=== PATIENT | female | born 1990 | race Two or more races ===

== ENCOUNTER 2017-10-02 20:43 | Emergency (ER) | payer OTHER ==
[2017-10-02] MEDS ORDERED: Sodium Chloride 0.9% 1,000 ML IV ONE (20:45)
[2017-10-02] MEDS ORDERED: LORazepam 2 MG/ML SDV IVPUSH ONE (20:45)
--- NOTE | 2017-10-02 20:49 | EDM.PDOC ---
ED HPI GENERAL MEDICAL PROBLEM - General Chief Complaint: Cardiovascular Problem Stated Complaint: CARDIAC Time Seen by Provider: 10/02/17 20:49 Source of Information: Reports: Patient - History of Present Illness INITIAL COMMENTS - FREE TEXT/NARRATIVE: HISTORY AND PHYSICAL: History of present illness: [Patient presents via EMS She is taking a fat burning stimulant product tonight to supplement called "reinier willams", blood pressure is elevated initially as well as heart rate however she is provided Ativan 1 mg IV blood pressure is normal as well as heart rate in no distress less jittery I did call poison control had no further recommendation just recommending no further stimulants or caffeine tonight as they were familiar with product that do not have any specific recommendation No fever nausea vomiting chills sweats no chest pain shortness breath headache dizziness palpitation no bowel or urine symptoms--post Ativan, 1.5 hours from ingestion Review of systems: As per history of present illness and below otherwise all systems reviewed and negative. Past medical history: As per history of present illness and as reviewed below otherwise noncontributory. Surgical history: As per history of present illness and as reviewed below otherwise noncontributory. Social history: No reported history of drug or alcohol abuse. Family history: As per history of present illness and as reviewed below otherwise noncontributory. Physical exam: HEENT: Atraumatic, normocephalic, pupils reactive, negative for conjunctival pallor or scleral icterus, mucous membranes moist, throat clear, neck supple, nontender, trachea midline. Lungs: Clear to auscultation, breath sounds equal bilaterally, chest nontender. Heart: S1S2, regular, negative for clicks, rubs, or JVD. Abdomen: Soft, nondistended, nontender. Negative for masses or hepatosplenomegaly. Negative for costovertebral tenderness. Pelvis: Stable nontender. Genitourinary: Deferred. Rectal: Deferred. Extremities: Atraumatic, negative for cords or calf pain. Neurovascular unremarkable. Neuro: Awake, alert, oriented. Cranial nerves II through XII unremarkable. Cerebellum unremarkable. Motor and sensory unremarkable throughout. Exam nonfocal. Diagnostics: [CBC CMP UA hCG troponin EKG Chest 1 view] Therapeutics: [Liter normal saline bolus Ativan 1 mg IV ] Impression: [ ingestion of stimulant Medical screening exam] Definitive disposition and diagnosis as appropriate pending reevaluation and review of above. Left Chest Pain Score (Numeric/FACES): 7 - Related Data Allergies Allergy/AdvReac Type Severity Reaction Status Date / Time No Known Allergies Allergy Verified 10/02/17 20:57 Home Meds: Home Meds . [No Known Home Meds] 10/02/17 [History] Past Medical History - Past Health History Medical/Surgical History: Denies Medical/Surgical History Social & Family History - Tobacco Use Smoking Status *Q: Never Smoker ED ROS GENERAL - Review of Systems Review Of Systems: See Below ED EXAM, GENERAL - Physical Exam Exam: See Below Course - Vital Signs Last Recorded V/S: Last Vital Signs Temp 98.5 F 10/02/17 20:51 Pulse 64 10/02/17 21:30 Resp 12 10/02/17 21:30 BP 102/67 10/02/17 21:30 Pulse Ox 99 10/02/17 21:30 - Orders/Labs/Meds Orders: Active Orders 24 hr Category Date Time Status EKG Documentation Completion [RC] STAT Care 10/02/17 20:45 Active Chest 1V Frontal [CR] Stat Exams 10/02/17 20:45 Taken UA W/MICROSCOPIC [URIN] Stat Lab 10/02/17 20:55 Ordered Sodium Chloride 0.9% [Normal Saline] 1,000 ml Med 10/02/17 20:45 Active IV STAT Medication Orders Sodium Chloride (Normal Saline) 1,000 mls @ 999 mls/hr IV STAT ONE Stop: 10/02/17 21:45 Last Admin: 10/02/17 21:00 Dose: 999 mls/hr Labs: Laboratory Tests 10/02/17 10/02/17 10/02/17 Range/Units 20:55 20:58 20:58 WBC 8.82 (4.0-11.0) K/uL RBC 4.81 (4.30-5.90) M/uL Hgb 14.5 (12.0-16.0) g/dL Hct 43.0 (36.0-46.0) % MCV 89.4 (80.0-98.0) fL MCH 30.1 (27.0-32.0) pg MCHC 33.7 (31.0-37.0) g/dL RDW Std Deviation 44.1 (28.0-62.0) fl RDW Coeff of Wendy 14 (11.0-15.0) % Plt Count 260 (150-400) K/uL MPV 9.40 (7.40-12.00) fL Neut % (Auto) 59.3 (48.0-80.0) % Lymph % (Auto) 31.7 (16.0-40.0) % Tripp % (Auto) 7.0 (0.0-15.0) % Eos % (Auto) 1.8 (0.0-7.0) % Baso % (Auto) 0.2 (0.0-1.5) % Neut # (Auto) 5.2 (1.4-5.7) K/uL Lymph # (Auto) 2.8 H (0.6-2.4) K/uL Tripp # (Auto) 0.6 (0.0-0.8) K/uL Eos # (Auto) 0.2 (0.0-0.7) K/uL Baso # (Auto) 0.0 (0.0-0.1) K/uL Nucleated RBC % 0.0 /100WBC Nucleated RBCs # 0 K/uL Sodium 140 (136-145) mmol/L Potassium 3.4 L (3.5-5.1) mmol/L Chloride 105 (98-107) mmol/L Carbon Dioxide 24.4 (21.0-32.0) mmol/L BUN 19 H (7.0-18.0) mg/dL Creatinine 1.0 (0.6-1.0) mg/dL Est Cr Clr Drug Dosing 67.43 mL/min Estimated GFR (MDRD) > 60.0 ml/min Glucose 93 (74-106) mg/dL Calcium 9.0 (8.5-10.1) mg/dL Total Bilirubin 0.3 (0.2-1.0) mg/dL AST 25 (15-37) IU/L ALT 30 (14-63) IU/L Alkaline Phosphatase 69 (46-116) U/L Troponin I < 0.050 (0.000-0.056) ng/mL Total Protein 7.9 (6.4-8.2) g/dL Albumin 4.0 (3.4-5.0) g/dL Globulin 3.9 H (2.0-3.5) g/dL Albumin/Globulin Ratio 1.0 L (1.3-2.8) Lipase 198 (73-393) U/L Urine Color YELLOW Urine Appearance CLEAR Urine pH 6.0 (5.0-8.0) Ur Specific [place] <= 1.005 (1.001-1.035) Urine Protein NEGATIVE (NEGATIVE) mg/dL Urine Glucose (UA) NEGATIVE (NEGATIVE) mg/dL Urine Ketones NEGATIVE (NEGATIVE) mg/dL Urine Occult Blood NEGATIVE (NEGATIVE) Urine Nitrite NEGATIVE (NEGATIVE) Urine Bilirubin NEGATIVE (NEGATIVE) Urine Urobilinogen 0.2 (<2.0) EU/dL Ur Leukocyte Esterase NEGATIVE (NEGATIVE) Urine RBC 0-1 (0-2/HPF) Urine WBC 0-1 (0-5/HPF) Ur Epithelial Cells RARE (NONE-FEW) Urine Bacteria RARE (NEGATIVE) Meds: Medications Generic Name Dose Route Start Last Admin Trade Name Freq PRN Reason Stop Dose Admin Sodium Chloride 1,000 mls @ 999 mls/hr 10/02/17 20:45 10/02/17 21:00 Normal Saline IV 10/02/17 21:45 999 mls/hr STAT ONE Administration Discontinued Medications Generic Name Dose Route Start Last Admin Trade Name Freq PRN Reason Stop Dose Admin Lorazepam 1 mg 10/02/17 20:45 10/02/17 21:00 Ativan IVPUSH 10/02/17 20:46 1 mg ONETIME ONE Administration Departure - Departure Time of Disposition: 21:35 Disposition: Home, Self-Care 01 Condition: Good Clinical Impression: Medication adverse effect, Encounter for medical screening examination Forms: ED Department Discharge Additional Instructions: The following information is given to patients seen in the emergency department who are being discharged to home. This information is to outline your options for follow-up care. We provide all patients seen in our emergency department with a follow-up referral. The need for follow-up, as well as the timing and circumstances, are variable depending upon the specifics of your emergency department visit. If you don't have a primary care physician on staff, we will provide you with a referral. We always advise you to contact your personal physician following an emergency department visit to inform them of the circumstance of the visit and for follow-up with them and/or the need for any referrals to a consulting specialist. The emergency department will also refer you to a specialist when appropriate. This referral assures that you have the opportunity for follow-up care with a specialist. All of these measure are taken in an effort to provide you with optimal care, which includes your follow-up. Under all circumstances we always encourage you to contact your private physician who remains a resource for coordinating your care. When calling for follow-up care, please make the office aware that this follow-up is from your recent emergency room visit. If for any reason you are refused follow-up, please contact the [facility] emergency department at and asked to speak to the emergency department charge nurse. - My Orders Last 24 Hours: My Active Orders 10/02/17 20:45 EKG Documentation Completion [RC] STAT Chest 1V Frontal [CR] Stat Sodium Chloride 0.9% [Normal Saline] 1,000 ml IV STAT 10/02/17 20:55 UA W/MICROSCOPIC [URIN] Stat - Assessment/Plan Last 24 Hours: My Active Orders 10/02/17 20:45 EKG Documentation Completion [RC] STAT Chest 1V Frontal [CR] Stat Sodium Chloride 0.9% [Normal Saline] 1,000 ml IV STAT 10/02/17 20:55 UA W/MICROSCOPIC [URIN] Stat
[2017-10-02 21:29] LABS: CHLORIDE,CL 105 mmol/L (98-107); SODIUM,NA 140 mmol/L (136-145)
--- NOTE | 2017-10-03 09:45 | CR ---
EXAM DATE: 10/02/17 PATIENT'S AGE: 27 Patient: NURY MEJIAS Facility: [place], [place] Site . Site : 1990 Study: XRay Chest [id number]/6/2018 9:19:30 PM Ordering Physician: Doctor Fitzegrald Final Report: INDICATION: Chest pain. Palpitations. Shortness of breath. Left upper quadrant pain. TECHNIQUE: Single view of the chest. FINDINGS: Heart and mediastinum are normal. Lungs are clear. No consolidations or pleural effusions are identified. Trachea is midline. IMPRESSION: No evidence of acute disease. Dictated by Adonis Frederick MD @ Oct 02 2017 9:20PM (Electronic Signature) Report Signed by Proxy. MANJIT
== END 2017-10-02 21:48 | disposition home or self-care (01) ==
LOC: MW.ED 20:43
DX: R03.0 Elevated blood-pressure reading, without diagnosis of hypertension (principal); T43.625A Adverse effect of amphetamines, initial encounter
CPT/HCPCS: 36415; 71045; 80053; 81001; 83690; 84484; 85025; 93005; 96361; 96374; 99285; J2060; J7040; 99283

== ENCOUNTER 2020-11-02 06:13 | Emergency (ER) | payer BC, OTHER ==
--- NOTE | 2020-11-02 07:26 | EDM.PDOC ---
ED HPI GENERAL MEDICAL PROBLEM - General Stated Complaint: CHEST PAIN Time Seen by Provider: 11/02/20 07:07 Source of Information: Reports: Patient History Limitations: Reports: No Limitations - History of Present Illness INITIAL COMMENTS - FREE TEXT/NARRATIVE: 30-year-old female no significant past medical history presents for shortness of breath. Patient notes that she is getting over Covid 19, was diagnosed on 820, had been feeling much better until last night when she developed a cough productive of frothy sputum and left anterior chest pain. She is feeling short of breath. She notes that the cough is improved this morning but she still having the left anterior chest pain and shortness of breath. She denies any fevers. She does have a sore throat and some sinus congestion. She notes that she had some sinus congestion with her Covid infection but that it has been getting better until yesterday. Denies any lower extremity swelling or pain. Patient is approximately 5-weeks - Related Data Allergies Allergy/AdvReac Type Severity Reaction Status Date / Time No Known Allergies Allergy Verified 11/02/20 07:31 Home Meds: Home Meds Azithromycin 250 mg PO DAILY 4 Days #4 tablet 11/02/20 [Rx] Past Medical History - Past Health History Medical/Surgical History: Denies Medical/Surgical History ED ROS GENERAL - Review of Systems Review Of Systems: Comprehensive ROS is negative, except as noted in HPI. ED EXAM, GENERAL - Physical Exam Exam: See Below Exam Limited By: No Limitations General Appearance: Alert, WD/WN, No Apparent Distress Ears: Hearing Grossly Normal Throat/Mouth: Normal Oropharynx, Normal Voice, No Airway Compromise Head: Atraumatic, Normocephalic Neck: Normal Inspection Respiratory/Chest: No Respiratory Distress, Lungs Clear, Normal Breath Sounds, No Accessory Muscle Use Cardiovascular: Normal Peripheral Pulses, Regular Rate, Rhythm, No Edema Extremities: Normal Inspection Neurological: Alert, Normal Cognition, Normal Gait Psychiatric: Normal Affect, Normal Mood Skin Exam: Warm, Dry, Intact, Normal Color #1 Interpretation EKG Date: 11/02/20 Time: 07:25 Rhythm: NSR Rate (Beats/Min): 65 [place]: Normal P-Wave: Present QRS: Normal ST-T: Normal QT: Normal RI/PQ Interval: 114 Comparison: NA - No Prior EKG EKG Interpretation Comments: normal EKG, no ischemic changes Course - Vital Signs Last Recorded V/S: Last Vital Signs Temp 97.8 F 11/02/20 07:32 Pulse 70 11/02/20 08:49 Resp 18 11/02/20 08:49 BP 105/59 L 11/02/20 08:49 Pulse Ox 97 11/02/20 08:49 - Orders/Labs/Meds Orders: Active Orders 24 hr Category Date Time Status Azithromycin [Zithromax] Med 11/02/20 09:41 Stat 500 mg PO STAT STA Medication Orders Azithromycin (Azithromycin 250 Mg Tab) 500 mg PO STAT STA Stop: 11/02/20 09:42 Labs: Laboratory Tests 11/02/20 11/02/20 11/02/20 Range/Units 07:45 08:34 08:34 WBC 12.28 H (4.0-11.0) K/uL RBC 4.64 (4.30-5.90) M/uL Hgb 14.4 (12.0-16.0) g/dL Hct 40.9 (36.0-46.0) % MCV 88.1 (80.0-98.0) fL MCH 31.0 (27.0-32.0) pg MCHC 35.2 (31.0-37.0) g/dL RDW Std Deviation 41.5 (28.0-62.0) fl RDW Coeff of Wendy 13 (11.0-15.0) % Plt Count 280 (150-400) K/uL MPV 9.70 (7.40-12.00) fL Neut % (Auto) 83.2 H (48.0-80.0) % Lymph % (Auto) 8.6 L (16.0-40.0) % Cobb % (Auto) 7.8 (0.0-15.0) % Eos % (Auto) 0.3 (0.0-7.0) % Baso % (Auto) 0.1 (0.0-1.5) % Neut # (Auto) 10.2 H (1.4-5.7) K/uL Lymph # (Auto) 1.1 (0.6-2.4) K/uL Cobb # (Auto) 1.0 H (0.0-0.8) K/uL Eos # (Auto) 0.0 (0.0-0.7) K/uL Baso # (Auto) 0.0 (0.0-0.1) K/uL Nucleated RBC % 0.0 /100WBC Nucleated RBCs # 0 K/uL D-Dimer, Quantitative 0.47 (0.0-0.50) mg/L FEU Sodium (136-145) mmol/L Potassium (3.5-5.1) mmol/L Chloride (98-107) mmol/L Carbon Dioxide (21.0-32.0) mmol/L BUN (7.0-18.0) mg/dL Creatinine (0.6-1.0) mg/dL Est Cr Clr Drug Dosing mL/min Estimated GFR (MDRD) ml/min Glucose (74-106) mg/dL Calcium (8.5-10.1) mg/dL Total Bilirubin (0.2-1.0) mg/dL AST (15-37) IU/L ALT (14-63) IU/L Alkaline Phosphatase (46-116) U/L Total Protein (6.4-8.2) g/dL Albumin (3.4-5.0) g/dL Globulin (2.6-4.0) g/dL Albumin/Globulin Ratio (0.9-1.6) SARS-CoV-2 RNA (MAKAYLA) POSITIVE H (NEGATIVE) 11/02/20 Range/Units 08:34 WBC (4.0-11.0) K/uL RBC (4.30-5.90) M/uL Hgb (12.0-16.0) g/dL Hct (36.0-46.0) % MCV (80.0-98.0) fL MCH (27.0-32.0) pg MCHC (31.0-37.0) g/dL RDW Std Deviation (28.0-62.0) fl RDW Coeff of Wendy (11.0-15.0) % Plt Count (150-400) K/uL MPV (7.40-12.00) fL Neut % (Auto) (48.0-80.0) % Lymph % (Auto) (16.0-40.0) % [place] % (Auto) (0.0-15.0) % Eos % (Auto) (0.0-7.0) % Baso % (Auto) (0.0-1.5) % Neut # (Auto) (1.4-5.7) K/uL Lymph # (Auto) (0.6-2.4) K/uL Cobb # (Auto) (0.0-0.8) K/uL Eos # (Auto) (0.0-0.7) K/uL Baso # (Auto) (0.0-0.1) K/uL Nucleated RBC % /100WBC Nucleated RBCs # K/uL D-Dimer, Quantitative (0.0-0.50) mg/L FEU Sodium 137 (136-145) mmol/L Potassium 3.9 (3.5-5.1) mmol/L Chloride 102 (98-107) mmol/L Carbon Dioxide 25.2 (21.0-32.0) mmol/L BUN 7 (7.0-18.0) mg/dL Creatinine 0.9 (0.6-1.0) mg/dL Est Cr Clr Drug Dosing 72.95 mL/min Estimated GFR (MDRD) > 60.0 ml/min Glucose 88 (74-106) mg/dL Calcium 8.1 L (8.5-10.1) mg/dL Total Bilirubin 0.4 (0.2-1.0) mg/dL AST 53 H (15-37) IU/L ALT 76 H (14-63) IU/L Alkaline Phosphatase 72 (46-116) U/L Total Protein 7.2 (6.4-8.2) g/dL Albumin 3.2 L (3.4-5.0) g/dL Globulin 4.0 (2.6-4.0) g/dL Albumin/Globulin Ratio 0.8 L (0.9-1.6) SARS-CoV-2 RNA (MAKAYLA) (NEGATIVE) Meds: Medications Generic Name Dose Route Start Last Admin Trade Name Freq PRN Reason Stop Dose Admin Azithromycin 500 mg 11/02/20 09:41 Azithromycin 250 Mg Tab PO 11/02/20 09:42 STAT STA Discontinued Medications Generic Name Dose Route Start Last Admin Trade Name Freq PRN Reason Stop Dose Admin Albuterol/Ipratropium 3 ml 11/02/20 08:24 11/02/20 08:37 Albuterol/Ipratropium 3.0-0.5 Mg/3 Ml Neb Soln NEB 11/02/20 08:25 3 ml ONETIME ONE Administration - Re-Assessments/Exams Free Text/Narrative Re-Assessment/Exam: 11/02/20 08:26 Patient is well-appearing on exam. She does not have any significant wheezing. Will trial a DuoNeb to see if that helps symptomatically. We will follow-up chest x-ray. Will get basic labs including D-dimer considering patient's recent COVID-19 status, pleuritic chest pain, need to rule out PE. 11/02/20 09:42 Chest x-ray shows findings consistent with Covid pneumonia. Patient does have a leukocytosis. Considering she was getting better initially now starting to feel worse will give a course of azithromycin for potential bacterial superinfection. Patient is saturating well and does not appear ill. I recommend that she follow-up with her [employer] for reassessment. Departure - Departure Time of Disposition: 09:42 Disposition: Home, Self-Care 01 Condition: Good Clinical Impression: Pneumonia Qualifiers: Pneumonia type: due to unspecified organism Laterality: unspecified laterality Lung location: unspecified part of lung Qualified Code(s): J18.9 - Pneumonia, unspecified organism - Discharge Information Prescriptions: Azithromycin 250 mg PO DAILY 4 Days #4 tablet Instructions: Community-Acquired Pneumonia, Adult Referrals: Vick Kelley MD [Primary Care Provider] - Additional Instructions: The following information is given to patients seen in the emergency department who are being discharged to home. This information is to outline your options for follow-up care. We provide all patients seen in our emergency department with a follow-up referral. The need for follow-up, as well as the timing and circumstances, are variable depending upon the specifics of your emergency department visit. If you don't have a primary care physician on staff, we will provide you with a referral. We always advise you to contact your personal physician following an emergency department visit to inform them of the circumstance of the visit and for follow-up with them and/or the need for any referrals to a consulting specialist. The emergency department will also refer you to a specialist when appropriate. This referral assures that you have the opportunity for follow-up care with a specialist. All of these measure are taken in an effort to provide you with optimal care, which includes your follow-up. Under all circumstances we always encourage you to contact your private physician who remains a resource for coordinating your care. When calling for follow-up care, please make the office aware that this follow-up is from your recent emergency room visit. If for any reason you are refused follow-up, please contact the Emergency Department at and asked to speak to the emergency department charge nurse. Please follow up with your primary care physician. If you do not have a primary care physician, see below: [facility] [address] [place] [address] [phone] My [facility] [address] [place] [address] [facility] [address] [place] [id number] Sepsis Event Note (ED) - Focused Exam Vital Signs: Vital Signs Temp Pulse Resp BP Pulse Ox 11/02/20 08:49 70 18 105/59 L 97 11/02/20 07:56 68 20 95/62 98 11/02/20 07:32 97.8 F 71 16 93/57 L 100 - My Orders Last 24 Hours: My Active Orders 11/02/20 09:41 Azithromycin [Zithromax] 500 mg PO STAT STA - Assessment/Plan Last 24 Hours: My Active Orders 11/02/20 09:41 Azithromycin [Zithromax] 500 mg PO STAT STA
[2020-11-02] MEDS ORDERED: Albuterol/Ipratropium 3.0-0.5 MG/3 ML Neb Soln NEB ONE (08:24)
[2020-11-02 09:04] LABS: BLOOD UREA NITROGEN,BUN 7 mg/dL (7.0-18.0); CARBON DIOXIDE,CO2 25.2 mmol/L (21.0-32.0); CHLORIDE,CL 102 mmol/L (98-107); GLUCOSE RANDOM 88 mg/dL (74-106); POTASSIUM,K 3.9 mmol/L (3.5-5.1); SODIUM,NA 137 mmol/L (136-145)
--- NOTE | 2020-11-02 09:24 | CR ---
INDICATION: Chest pain; COVID-19 positive since 10/15/2020. COMPARISON: Portable AP chest October 02, 2017. TECHNIQUE: single AP chest. FINDINGS: Normal size cardiac silhouette. Patchy areas of alveolar consolidation lower lobes bilateral; highly suggestive of COVID-19 pneumonia. No pneumothorax or pleural effusion. Impression: Patchy areas of alveolar consolidation both lower lungs; highly suggestive of COVID-19 pneumonia. Dictated by Luna Chinchilla MD @ 11/02/2020 9:23:56 AM (Electronically Signed)
[2020-11-02] MEDS ORDERED: Azithromycin 250 MG Tab PO STA (09:41)
== END 2020-11-02 10:01 | disposition home or self-care (01) ==
LOC: MW.ED 06:13
DX: U07.1 COVID-19 (principal); J12.82 Pneumonia due to coronavirus disease 2019
CPT/HCPCS: 36415; 71045; 80053; 85025; 85379; 87635; 93005; 99285; A9270; J7620-GY; U0002

== ENCOUNTER 2021-07-01 00:05 | Inpatient (IN) | payer BC ==
[2021-07-01] MEDS ORDERED: Sodium Chloride 0.9% 10 ML Syringe FLUSH PRN (00:17)
[2021-07-01] MEDS ORDERED: Methylergonovine 0.2 MG/1 ML Amp IM PRN (00:17)
[2021-07-01] MEDS ORDERED: Sodium Chloride 0.9% 2.5 ML Syringe FLUSH PRN (00:17)
[2021-07-01] MEDS ORDERED: Misoprostol 200 MCG Tab PO PRN (00:17)
[2021-07-01] MEDS ORDERED: Sodium Chloride 0.9% 20 ML SDV IV PRN (00:17)
[2021-07-01] MEDS ORDERED: Terbutaline 1 MG/ML SDV SUBCUT PRN (00:17)
[2021-07-01] MEDS ORDERED: Water For Irrigation,Sterile 1,000 ML Container IRR PRN (00:17)
[2021-07-01] MEDS ORDERED: Tranexamic Acid 1,000 MG in Sodium Chloride 0.9% 100 ML IV PRN (00:17)
[2021-07-01] MEDS ORDERED: Carboprost Tromethamine 250 MCG/1 ML Amp IM PRN (00:17)
[2021-07-01] MEDS ORDERED: Ondansetron 4 MG/2 ML SDV IVPUSH PRN (00:17)
[2021-07-01] MEDS ORDERED: Lidocaine 1% 50 ML MDV INJECT PRN (00:17)
[2021-07-01] MEDS ORDERED: Oxytocin/0.9 % Sodium Chloride 30 UNIT/500 ML BAG IV SCH ×2 (00:30)
[2021-07-01] MEDS: Misoprostol 25 MCG (1/4 of 100 MCG) Tab VAG PRN ×3 (01:07→10:00)
[2021-07-01] MEDS: Misoprostol 25 MCG (1/4 of 100 MCG) Tab PO PRN ×3 (01:07→10:12)
[2021-07-01] MEDS: Butorphanol 1 MG/ML SDV IVPUSH PRN ×2 (10:46→13:16)
[2021-07-01] MEDS ORDERED: ePHEDrine 50 MG/ML SDV IVPUSH PRN ×2 (13:25)
[2021-07-01] MEDS ORDERED: Ropivacaine 200 MG in Premix Bag 1 BAG EPIDUR SCH (13:30)
[2021-07-01] MEDS: Lactated Ringers 1,000 ML IV SCH ×3 (13:50→21:31)
[2021-07-01] MEDS ORDERED: hydrOXYzine Pamoate 25 MG Cap PO PRN (23:39)
[2021-07-02] MEDS ORDERED: fentaNYL 100 MCG/2 ML SDV ONE (00:19)
[2021-07-02] MEDS ORDERED: Ropivacaine 0.5% 5 MG/ML 30 ML SDV ONE (00:19)
[2021-07-02] MEDS ORDERED: Lidocaine 2% with EPINEPHrine 1:200,000 20 ML SDV ONE (00:19)
[2021-07-02] MEDS: Lactated Ringers 1,000 ML IV SCH (02:16)
[2021-07-02] MEDS: Butorphanol 1 MG/ML SDV IVPUSH PRN (03:41)
[2021-07-02] MEDS ORDERED: Docusate Sodium 100 MG Cap PO PRN (05:20)
[2021-07-02] MEDS ORDERED: Benzocaine/Menthol 20%-0.5% Spray 78 GM Cannister TOP PRN (05:20)
[2021-07-02] MEDS ORDERED: Acetaminophen 500 MG Tab PO PRN (05:20)
[2021-07-02] MEDS ORDERED: Bisacodyl 10 MG Supp RECTAL PRN (05:20)
[2021-07-02] MEDS ORDERED: Ibuprofen 400 MG Tab PO PRN (05:20)
[2021-07-02] MEDS ORDERED: Witch Hazel Medicated Pads 40/Jar TOP PRN (05:20)
[2021-07-02] MEDS ORDERED: Lanolin 100% Cream 7 GM Tube TOP PRN (05:20)
[2021-07-02] MEDS: Ibuprofen 800 MG Tab PO PRN ×2 (06:01→17:44)
[2021-07-02] MEDS: Acetaminophen 500 MG Tab PO PRN (17:44)
[2021-07-03] MEDS: Acetaminophen 500 MG Tab PO PRN (03:03)
[2021-07-03] MEDS: Ibuprofen 800 MG Tab PO PRN (03:03)
== END 2021-07-03 13:10 | disposition home or self-care (01) | DRG 560 ==
LOC: MW.OBCHECK 00:05 → MW.OB 00:05 → MW.OBCHECK 01:47 → OBSVTOIN 07-02 04:45 → MW.OB 07-02 08:44
PROVIDERS: ADMIT Obstetrics & Gynecology Obstetrics; ATTEND Obstetrics & Gynecology Obstetrics
PROC: 10E0XZZ Delivery of Products of Conception, External Approach (ICD-10-PCS; principal; 2021-07-02)
PROC: 10907ZC Drainage of Amniotic Fluid, Therapeutic from Products of Conception, Via Natural or Artificial Opening (ICD-10-PCS; 2021-07-02)
PROC: 3E0R3BZ Introduction of Anesthetic Agent into Spinal Canal, Percutaneous Approach (ICD-10-PCS; 2021-07-02)
PROC: 00HU33Z Insertion of Infusion Device into Spinal Canal, Percutaneous Approach (ICD-10-PCS; 2021-07-02)
DX: O77.0 Labor and delivery complicated by meconium in amniotic fluid (principal); Z37.0 Single live birth; Z3A.39 39 weeks gestation of pregnancy; O69.81X0 Labor and delivery complicated by cord around neck, without compression, not applicable or unspecified; Z20.822 Contact with and (suspected) exposure to COVID-19
CPT/HCPCS: 01967; 36415; 51702; 59025; 59409; 85014; 85018; 85027; 86592; 86850; 86900; 86901; A9270-GY; J0595; J2370; J2590; J2795; J3010; J7120; U0002